=== PATIENT | male | born 1975 | race Caucasian/White ===

== ENCOUNTER → 2016-09-19 | Outpatient (CLI) | payer OTHER ==
[~2016-09-19] MED LIST: ALPR1TAB6 PO; AMOX1TAB64 PO; CITA20TA5 PO; GABA100C8 PO; HYDR473S51 PO; ONDA-40 PO; OXYC-302 PO
== END | disposition home or self-care (01) ==
LOC: ROC 13:42
PROVIDERS: ATTEND Radiology Radiation Oncology
DX: C11.9 Malignant neoplasm of nasopharynx, unspecified (principal)
CPT/HCPCS: 99212; G0463

== ENCOUNTER → 2016-12-17 | Outpatient (CLI) | payer OTHER ==
[~2016-12-17] MED LIST changes: +GABA-826 PO; -GABA100C8 PO
== END | disposition home or self-care (01) ==
LOC: RAD 09:39
PROVIDERS: ATTEND Radiology Radiation Oncology
DX: C11.8 Malignant neoplasm of overlapping sites of nasopharynx (principal)
CPT/HCPCS: 74230

== ENCOUNTER → 2017-03-28 | Outpatient (CLI) | payer OTHER ==
[~2017-03-28] MED LIST changes: -ONDA-40 PO; +ONDA8TAB15 PO
== END | disposition home or self-care (01) ==
LOC: ROC 08:14
PROVIDERS: ATTEND Radiology Radiation Oncology
DX: C11.9 Malignant neoplasm of nasopharynx, unspecified (principal)
CPT/HCPCS: 99212; G0463

== ENCOUNTER → 2017-06-06 | Outpatient (CLI) | payer OTHER, MEDICARE | END | disposition home or self-care (01) | LOC: ROC 11:31 | PROVIDERS: ATTEND Radiology Radiation Oncology | DX: C11.9 Malignant neoplasm of nasopharynx, unspecified (principal) | CPT/HCPCS: 99212; G0463 ==

== ENCOUNTER → 2017-06-12 | Outpatient (CLI) | payer MEDICARE, OTHER | LOC: ROC 11:05 | PROVIDERS: ATTEND Radiology Radiation Oncology | DX: C11.9 Malignant neoplasm of nasopharynx, unspecified (principal) | CPT/HCPCS: 99212; G0463 ==

== ENCOUNTER → 2017-06-25 | Outpatient (CLI) | payer MEDICARE, OTHER | END | disposition home or self-care (01) | LOC: ROC 14:17 | PROVIDERS: ATTEND Radiology Radiation Oncology | DX: C11.9 Malignant neoplasm of nasopharynx, unspecified (principal) | CPT/HCPCS: 99212; G0463 ==

== ENCOUNTER → 2017-09-04 | Outpatient (CLI) | payer OTHER, MEDICARE ==
[~2017-09-04] MED LIST changes: +GADOBUTROL 7.5 MMOL/7.5 ML VIAL ONE
== END | disposition home or self-care (01) ==
LOC: CFH 09:49
PROVIDERS: ATTEND Radiology Radiation Oncology
DX: C11.8 Malignant neoplasm of overlapping sites of nasopharynx (principal)
CPT/HCPCS: 70543; A9585

== ENCOUNTER → 2017-10-16 | Outpatient (CLI) | payer MEDICARE, OTHER ==
[~2017-10-16] MED LIST changes: -GADOBUTROL 7.5 MMOL/7.5 ML VIAL ONE
== END | disposition home or self-care (01) ==
LOC: ROC 15:30
PROVIDERS: ATTEND Radiology Radiation Oncology
DX: Z08 Encounter for follow-up examination after completed treatment for malignant neoplasm (principal); C11.8 Malignant neoplasm of overlapping sites of nasopharynx
CPT/HCPCS: G0463

== ENCOUNTER → 2018-01-23 | Outpatient (CLI) | payer MEDICARE ==
[~2018-01-23] MED LIST changes: -CITA20TA5 PO; +CITA20TA6 PO
== END | disposition home or self-care (01) ==
LOC: ROC 07:23
PROVIDERS: ATTEND Radiology Radiation Oncology
DX: C11.1 Malignant neoplasm of posterior wall of nasopharynx (principal)
CPT/HCPCS: G0463

== ENCOUNTER → 2018-02-10 | Outpatient (CLI) | payer MEDICARE ==
[~2018-02-10] MED LIST changes: +OMNIPAQUE 350 MG/ML, 75ML BOTTLE ONE
== END | disposition home or self-care (01) ==
LOC: CFH 14:01
PROVIDERS: ATTEND Radiology Radiation Oncology
DX: R91.8 Other nonspecific abnormal finding of lung field (principal); R59.0 Localized enlarged lymph nodes; C11.8 Malignant neoplasm of overlapping sites of nasopharynx
CPT/HCPCS: 71260; Q9967

== ENCOUNTER → 2018-05-25 | Outpatient (CLI) | payer MEDICARE ==
[~2018-05-25] MED LIST changes: +GADOBUTROL 7.5 MMOL/7.5 ML PFS ONE
== END | disposition home or self-care (01) ==
LOC: CFH 13:26
PROVIDERS: ATTEND Radiology Radiation Oncology
DX: R91.8 Other nonspecific abnormal finding of lung field (principal); J32.2 Chronic ethmoidal sinusitis
CPT/HCPCS: 70543; 71260; A9585; Q9967

== ENCOUNTER → 2018-05-27 | Outpatient (CLI) | payer MEDICARE ==
[~2018-05-27] MED LIST changes: -GADOBUTROL 7.5 MMOL/7.5 ML PFS ONE; -OMNIPAQUE 350 MG/ML, 75ML BOTTLE ONE
== END | disposition home or self-care (01) ==
LOC: ROC 09:31
PROVIDERS: ATTEND Radiology Radiation Oncology
DX: C11.8 Malignant neoplasm of overlapping sites of nasopharynx (principal)
CPT/HCPCS: G0463

== ENCOUNTER 2018-11-26 09:18 | Outpatient (CLI) | payer MEDICARE ==
[2018-11-26] MEDS ORDERED: GADOBUTROL 10 MMOL/10 ML PFS ONE (10:29)
[2018-11-26] MEDS ORDERED: OMNIPAQUE 350 MG/ML, 75ML BOTTLE ONE (15:26)
== END 2018-11-26 23:59 | disposition home or self-care (01) ==
LOC: CFH 09:18
PROVIDERS: ATTEND Radiology Radiation Oncology
DX: C11.8 Malignant neoplasm of overlapping sites of nasopharynx (principal); I10 Essential (primary) hypertension; R91.8 Other nonspecific abnormal finding of lung field
CPT/HCPCS: 70543; 71260; A9585; Q9967

== ENCOUNTER → 2019-09-20 | Outpatient (CLI) | payer MEDICARE ==
[~2019-09-20] MED LIST changes: +GADOTERATE 10 MMOL/20 ML SYR ONE; +OMNIPAQUE 350 MG/ML, 75ML BOTTLE ONE; -ONDA8TAB15 PO; +ONDA8TAB18 PO
== END | disposition home or self-care (01) ==
LOC: CFH 13:15
PROVIDERS: ATTEND Radiology Radiation Oncology
DX: C11.8 Malignant neoplasm of overlapping sites of nasopharynx (principal); R91.1 Solitary pulmonary nodule; J34.89 Other specified disorders of nose and nasal sinuses
CPT/HCPCS: 70543; 71260; A9575; Q9967

== ENCOUNTER 2019-09-22 08:48 | Outpatient (CLI) | payer MEDICARE ==
[~2019-09-22 08:48] MED LIST changes: -GADOTERATE 10 MMOL/20 ML SYR ONE; -OMNIPAQUE 350 MG/ML, 75ML BOTTLE ONE
== END 2019-09-22 23:59 | disposition home or self-care (01) ==
LOC: ROC 08:48
PROVIDERS: ATTEND Radiology Radiation Oncology
DX: C11.8 Malignant neoplasm of overlapping sites of nasopharynx (principal)
CPT/HCPCS: G0463

== ENCOUNTER → 2020-06-14 | Outpatient (CLI) | payer MEDICARE ==
[~2020-06-14] MED LIST changes: +ALPR-585 PO; -ALPR1TAB6 PO; +GADOTERATE 10 MMOL/20 ML SYR ONE; +OMNIPAQUE 350 MG/ML, 75ML BOTTLE ONE; -OXYC-302 PO; +OXYC1TAB14 PO
== END | disposition home or self-care (01) ==
LOC: CFH 09:14
PROVIDERS: ATTEND Radiology Radiation Oncology
DX: C11.8 Malignant neoplasm of overlapping sites of nasopharynx (principal); H70.92 Unspecified mastoiditis, left ear; R91.1 Solitary pulmonary nodule
CPT/HCPCS: 70543; 71260; A9575; Q9967

== ENCOUNTER 2020-06-22 07:24 | Outpatient (CLI) | payer MEDICARE ==
[~2020-06-22 07:24] MED LIST changes: -GADOTERATE 10 MMOL/20 ML SYR ONE; -OMNIPAQUE 350 MG/ML, 75ML BOTTLE ONE
== END 2020-06-22 23:59 | disposition home or self-care (01) ==
LOC: ROC 07:24
PROVIDERS: ATTEND Radiology Radiation Oncology
DX: Z08 Encounter for follow-up examination after completed treatment for malignant neoplasm (principal); C11.8 Malignant neoplasm of overlapping sites of nasopharynx
CPT/HCPCS: G0463